=== PATIENT | male | born 1990 | race Caucasian/White ===

== ENCOUNTER 2020-04-15 05:11 | Emergency (ER) | payer SELFPAY ==
[~2020-04-15] VITALS: Ht 177.8 cm; Wt 84.0 kg
[2020-04-15 05:13] VITALS: BP 138/90
== END 2020-04-15 05:53 | disposition left against medical advice (07) ==
LOC: ER 05:11
DX: T40.1X1A Poisoning by heroin, accidental (unintentional), initial encounter (principal); Y92.018 Other place in single-family (private) house as the place of occurrence of the external cause
CPT/HCPCS: 82962; 93005; 99283

== ENCOUNTER 2023-09-19 02:50 | Emergency (ER) | payer MEDICAID ==
[~2023-09-19] VITALS: Ht 190.5 cm; Wt 96.0 kg
[2023-09-19 02:59] VITALS: BP 159/70; PULSE 98; RESP 16; TEMP 98.7; O2SAT 100
== END 2023-09-19 04:03 | disposition left against medical advice (07) ==
LOC: ER 03:30
DX: R51.9 Headache, unspecified (principal); Z53.21 Procedure and treatment not carried out due to patient leaving prior to being seen by health care provider